=== PATIENT | female | born 1945 | race Caucasian/White ===

== ENCOUNTER → 2016-10-28 | Outpatient (CLI) | payer OTHER, MEDICARE | LOC: BMCIMAGING 11:02 | PROVIDERS: ATTEND Family Medicine | DX: R05 Cough (principal); R06.02 Shortness of breath ==

== ENCOUNTER → 2017-06-08 | Outpatient (CLI) | payer OTHER, MEDICARE | LOC: BMCIMAGING 07:53 | PROVIDERS: ATTEND Internal Medicine | DX: R10.2 Pelvic and perineal pain (principal); N28.1 Cyst of kidney, acquired ==

== ENCOUNTER 2018-10-31 09:25 | Inpatient (IN) | payer OTHER, MEDICARE ==
[2018-10-31] MEDS ORDERED: cefOXitin SODIUM 2 GM in NS 100 ML IV ONE (09:36)
[2018-10-31] MEDS ORDERED: LR 1,000 ML IV ONE (10:00)
[2018-10-31 10:21] LABS: PLATELET COUNT 238 10^3/uL (150-400)
--- NOTE | 2018-10-31 11:48 | PDHPUP ---
History & Physical Update H&P update statement: This history and physical update is based on an assessment of the patient which was completed after admission or registration (within 24 hours), but prior to the surgery/procedure. H&P update: H&P reviewed & patient examined, no change in patient's condition since H&P completed
[2018-10-31] MEDS ORDERED: ALPRAZolam 0.25 MG TAB PO ONE (12:30)
[2018-10-31] MEDS ORDERED: HEPARIN 1000 UNIT/1 ML MDV ONE (13:07)
[2018-10-31] MEDS ORDERED: BUPIVACAINE 0.5% 30 ML SDV ONE (13:07)
[2018-10-31] MEDS ORDERED: ceFAZolin 1 GM/5 ML SYR ONE (13:07)
--- NOTE | 2018-10-31 13:36 | PDANEPAE ---
ANE History of Present Illness sigmoid colectomy for colon Ca ANE Past Medical History - Cardiovascular History Hx Hypertension: No Hx Arrhythmias: No Hx Chest Pain: No Hx Coronary Artery / Peripheral Vascular Disease: No Hx CHF / Valvular Disease: No Hx Palpitations: No - Pulmonary History Hx COPD: No Hx Asthma/Reactive Airway Disease: No Hx Recent Upper Respiratory Infection: No Hx Oxygen in Use at Home: No Hx Sleep Apnea: No Sleep Apnea Screening Result - Last Documented: Negative Pulmonary History Comment: pneumonia one yr ago - Neurologic History Hx Cerebrovascular Accident: No Hx Seizures: No Hx Dementia: No - Endocrine History Hx Diabetes: No - Renal History Hx Renal Disorders: No Renal History Comment: kidney stone - Liver History Hx Hepatic Disorders: No - Neurological & Psychiatric Hx Hx Neurological and Psychiatric Disorders: Yes Neurological / Psychiatric History Comment: anxiety/depression - Cancer History Hx Cancer: Yes Cancer History Comment: colon ca - Congenital Disorder History Hx Congenital Disorders: No - GI History Hx Gastrointestinal Disorders: No - Other Health History Other Health History: neg - Chronic Pain History Chronic Pain: No - Surgical History Prior Surgeries: c section. colonoscopies x2 ANE Review of Systems Review of Systems: - Exercise capacity METS (RN): 4 METS ANE Patient History - Allergies Allergies/Adverse Reactions: No Known Allergies Allergy (Verified 10/29/18 10:58) - Home Medications Home medications: home medication list seen and reviewed Home Medications: FLUoxetine [Prozac 20 MG (*)] 80 mg PO DAILY 05/20/09 [Last Taken 1 Day Ago ~] ALPRAZolam [Xanax 0.25 MG (*)] 0.25 mg PO DAILY PRN 10/29/18 [Last Taken 08:30] Ibuprofen [Motrin (*)] 200 mg PO DAILY PRN 10/29/18 [Last Taken 3 Days Ago ~] - NPO status NPO Since - Liquids (Date): 10/31/18 NPO Since - Liquids (Time): 08:30 NPO Since - Solids (Date): 10/29/18 NPO Since - Solids (Time): 20:00 - Smoking Hx Smoking Status: Former smoker - Family Anes Hx Family Hx Anesthesia Complications: neg ANE Labs/Vital Signs - Labs Result Diagrams: 10/31/18 10:10 10/31/18 10:10 - Vital Signs Blood Pressure: 133/82 Heart Rate: 75 Respiratory Rate: 7 O2 Sat (%): 93 Height: 165.1 cm Weight: 95.254 kg ANE Physical Exam - Airway Neck exam: FROM Mallampati Score: Class 2 Mouth exam: dentures - Pulmonary Pulmonary: no respiratory distress - Cardiovascular Cardiovascular: regular rate and rhythym - ASA Status ASA Status: II ANE Anesthesia Plan Anesthesia Plan: general endotracheal anesthesia Regional Anesthesia: TAP block (at end if needed)
[2018-10-31] MEDS ORDERED: PROPOFOL/EMULSION 500 MG/50 ML BOTTLE IV ONE (13:42)
[2018-10-31] MEDS ORDERED: fentaNYL 100 MCG/2 ML INJ ONE ×2 (13:42→17:32)
[2018-10-31] MEDS ORDERED: DEXAMETHASONE 4 MG/ML VIAL ONE ×2 (13:44)
[2018-10-31] MEDS ORDERED: ROCURONIUM 50 MG/5 ML VIAL ONE (13:44)
[2018-10-31] MEDS ORDERED: LIDOCAINE 2% 100 MG/5 ML SYR ONE (13:44)
[2018-10-31] MEDS ORDERED: ONDANSETRON 4 MG/2 ML VIAL ONE (13:45)
[2018-10-31] MEDS ORDERED: LIDOCAINE HCL 160 MG/4 ML LTA KIT TP ONE (13:50)
[2018-10-31] MEDS ORDERED: ePHEDrine SULFATE 25 MG/5 ML SYR ONE (13:58)
[2018-10-31] MEDS ORDERED: fentaNYL 250 MCG/5 ML INJ ONE (14:26)
[2018-10-31] MEDS ORDERED: PHENYLEPHRINE HCL 100 MCG/ML SYR ONE ×2 (14:57→15:47)
[2018-10-31] MEDS ORDERED: NALOXONE HCL 0.4 MG/ML INJ IVP PRN ×2 (16:34→16:57)
[2018-10-31] MEDS ORDERED: ONDANSETRON 4 MG/2 ML VIAL IVP PRN ×2 (16:34→16:57)
[2018-10-31] MEDS ORDERED: ROPIVACAINE HCL 150 MG/30 ML INJ ONE ×2 (16:35)
--- NOTE | 2018-10-31 16:40 | POSTOPPROG ---
Post Op Note Date of Operation: 10/31/18 Surgeon: José Manuel Echeverria Commercial Front Load Driver: Lucretia Seay Anesthesiologist: Ernie Navas/ Zac Lackey Anesthesia: GET(General Endotracheal) Pre-op Diagnosis: sigmoid colon mass Post-op Diagnosis: same, but closer to descending colon Procedure: ex laparoscopy, laparotomy c L hemicolectomy Findings: tumor marked and palpated. many adhesions. no obvious mets. large omentum Inf/Abcess present in the surg proc area at time of surgery?: No EBL: 50-100 Bowel Protocol: Yes Clean Closure Performed: Yes Specimen(s): colon to pathology
[2018-10-31] MEDS ORDERED: oxyCODONE IR 5 MG TAB PO PRN (16:57)
[2018-10-31] MEDS ORDERED: ALBUTEROL 3 ML DEYVIAL IH PRN (16:57)
[2018-10-31] MEDS ORDERED: HYDROmorphONE/DILAUDID 1 MG/ML INJ IVP PRN (16:57)
[2018-10-31] MEDS ORDERED: fentaNYL 100 MCG/2 ML INJ IVP PRN (16:57)
--- NOTE | 2018-10-31 16:57 | POSTANESTH ---
Post Anesthetic Evaluation Cardiovascular Status: Normal, Stable Respiratory Status: Normal, Stable Level of Consciousness/Mental Status: Can Participate in Eval, Alert and Oriented Pain Control: Adequate, Prn Tx Ordered Nausea/Vomiting Control: Adequate, Prn Tx Ordered
--- NOTE | 2018-10-31 17:54 | PDMN ---
Medical Necessity Medical necessity: [facility] IP only surgery, cpt 89670 Partial Colectomy
[2018-10-31] MEDS: NS 1,000 ML IV SCH (18:33)
[2018-10-31] MEDS: HYDROmorphONE/DILAUDID 6 MG/30 ML PCA IV PRN (20:28)
[2018-10-31] MEDS: DOCUSATE SODIUM 100 MG CAP PO SCH (23:35)
[2018-11-01] MEDS: NS 1,000 ML IV SCH ×3 (02:38→18:41)
[2018-11-01] MEDS ORDERED: ENOXAPARIN 40 MG/0.4 ML SYR SC SCH (09:00)
[2018-11-01] MEDS: DOCUSATE SODIUM 100 MG CAP PO SCH ×2 (09:31→22:04)
[2018-11-01] MEDS: FLUoxetine 20 MG CAP PO SCH (09:31)
--- NOTE | 2018-11-01 09:37 | SOAPPROG ---
SOAP Progress Note Assessment/Plan: Assessment/plan: 73 y/o F s/p lap conversion to open L hemicolectomy for CA POD #1 Path pending. Cr and K elevated this am. Will recheck later today. Continue iv fluids. Camejo. Remove per protocol. Continue manager digital ad operations for pain. Continue NPO with small sips and ice chips until pt passes flatus. Ambulate Dispo: pending clinical course and return of bowel function. S: Doing well overall. Denies passing gas yet. Pain controlled with manager digital ad operations. O: Alert Afebrile, VSS RRR No increased WOB Abdomen: soft, nontender, nondistended, incision site well dressed. Absent bowel sounds. 11/01/18 09:32 Objective: Vital Signs Temp Pulse Resp BP Pulse Ox 37.2 C 89 17 112/71 91 L 11/01/18 08:01 11/01/18 08:01 11/01/18 08:01 11/01/18 08:01 11/01/18 08:01 Laboratory Results 11/01/18 05:02 11/01/18 05:02 10/31/18 11/01/18 11/02/18 05:59 05:59 05:59 Intake Total 4645 Output Total 900 Balance 3745 ICD10 Worksheet Patient Problems: Problems Problem Status Onset Colon cancer Acute - ICD10 Problem Qualifiers (1) Colon cancer
[2018-11-01] MEDS: ALPRAZolam 0.25 MG TAB PO PRN ×2 (09:43→22:35)
--- NOTE | 2018-11-01 09:45 | ASMTCMCOM ---
CM Note CM Note Notes: Patient admitted for exploratory laparoscopy, laparotomy w L hemicolectomy. She is recovering well. She lives alone and is normally independent. Son from [facility] coming in Monday, 11/03 to help. She also has a friend who can assist if she is discharged before he arrives. I do not anticipate a need for home health but Case Management available if needs change. Current CM Discharge plan: home independent Date Signed: 11/01/2018 09:44 AM Electronically Signed By:Jayde Wilkerson RN
[2018-11-01] MEDS: OXYCODONE/APAP 5/325 TAB PO PRN (12:31)
[2018-11-01] MEDS: HYDROmorphONE/DILAUDID 6 MG/30 ML PCA IV PRN (20:15)
[2018-11-01] MEDS: HEPARIN 5,000 UNIT/0.5 ML INJ SC SCH (22:03)
--- NOTE | 2018-11-01 23:12 | GOP ---
[f rep st] OPERATIVE REPORT DATE OF OPERATION: 10/31/2018 SURGEON: José Manuel Echeverria MD DIRECTOR ADVANCED: ROSEMARY Medeiros. ANESTHESIOLOGIST: Dr. Lowe. PREOPERATIVE DIAGNOSIS: Sigmoid colon cancer. POSTOPERATIVE DIAGNOSIS: Descending colon cancer. PROCEDURE PERFORMED: Laparoscopic left hemicolectomy with conversion to an open laparotomy. FINDINGS: Patient was found to have a nearly-obstructing colon cancer near the splenic flexure of th e descending colon on the left. Had a redundant sigmoid colon. Had markedly thickened enlarged omen luigi which was largely obscuring the splenic flexure and the colon cancer. DESCRIPTION OF PROCEDURE: The patient was taken to the operating room where she received a satisfact ory general endotracheal anesthesia by Dr. Lowe. She was placed in a supine position in low stir rups, prepped and draped in usual sterile fashion. A supraumbilical incision was made. A Veress nee dle inserted. Pneumoperitoneum was established. Trocar was introduced. Laparoscope introduced. Go od visualization was obtained. Three other trocars were placed in the lower abdomen under direct vis ion. The sigmoid colon was mobilized by dividing the lateral peritoneal reflection and taking down a significant number of adhesions with the Harmonic Scalpel. However, the tumor was not seen in the s igmoid colon as advertised and was located further up underneath the thickened omentum in the descend ing colon. The Harmonic Scalpel was used to separate the omentum from the left colon, and the perito jaren reflection was divided with the Harmonic Scalpel up around the splenic flexure. However, it was still quite difficult to define the anatomy. After a tedious amount of dissection, it was elected t o make a midline incision for better mobilization of the colon. This was carried down through the neeta alba. The abdomen was entered. The Josué wound retractor was placed. The splenic flexure was further mobilized by retracting the descending and sigmoid colon medially and dividing the omentum of f the transverse colon with the Harmonic Scalpel. The left colon mesentery was then divided with the Harmonic Scalpel adjacent to the aorta with care to avoid injury to the ureter or the small intestin e. This was done with the Harmonic Scalpel. The distal colon was divided with a EMPERATRIZ stapler as was the left transverse colon. The specimen was removed and sent to Pathology, and confirmed to contain the cancerous mass. End-to-side anastomosis was then made of the transverse colon to the proximal si gmoid. This was done in a 2-layer fashion with 3-0 silks for the anterior and posterior layers and a running inner layer of 3-0 Vicryl creating a good 2-fingerbreadth anastomosis. The suture line was covered with some omental tissue with separate 3-0 silk sutures. The wound was irrigated. Hemostasi s was assured. A clean closure setup was used along with new gloves and gowns, and the wound was the n closed using a running #1 PDS suture for the linea alba, a 3-0 Vicryl for the subcu, 4-0 Monocryl s ubcuticular stitch for the skin. All layers were infiltrated with 0.5% Marcaine. Trocar sites were also closed with 4-0 Monocryl subcuticular stitch for the skin. Wounds were infiltrated with 0.5% Ma rcaine. She tolerated the procedure well, was taken to the recovery room in good condition. There w ere no complications. /[id number]/MODL
[2018-11-02] MEDS: NS 1,000 ML IV SCH (03:35)
[2018-11-02] MEDS: HEPARIN 5,000 UNIT/0.5 ML INJ SC SCH ×3 (06:09→21:46)
[2018-11-02] MEDS: OXYCODONE/APAP 5/325 TAB PO PRN (07:50)
[2018-11-02] MEDS: DOCUSATE SODIUM 100 MG CAP PO SCH ×2 (09:17→20:58)
[2018-11-02] MEDS: FLUoxetine 20 MG CAP PO SCH (09:17)
[2018-11-02] MEDS: HYDROmorphONE/DILAUDID 2 MG TAB PO PRN ×3 (12:05→20:58)
--- NOTE | 2018-11-02 14:19 | SOAPPROG ---
SOAP Progress Note Assessment/Plan: Assessment/plan: 73 y/o F s/p lap conversion to open L hemicolectomy for CA POD #2 Path pending. Cr and K elevated yesterday. Improved today. Camejo removed yesterday. Uop adequate Postop pain. D/c manager technical training today and transition to oral pain meds Advance to clear liquid diet. Continue to ambulate Dispo: likely home over the weekend. S: Pain controlled. Denies passing gas. O: Alert Afebrile, VSS RRR No increased WOB Abdomen: soft, nontender, nondistended. Incision cdi. Normoactive bowel sounds. 11/02/18 14:17 Objective: Vital Signs Temp Pulse Resp BP Pulse Ox 36.6 C 77 16 115/67 88 L 11/02/18 11:32 11/02/18 11:32 11/02/18 11:32 11/02/18 11:32 11/02/18 11:32 Laboratory Results 11/01/18 05:02 11/02/18 08:00 11/01/18 11/02/18 11/03/18 05:59 05:59 05:59 Intake Total 4645 2000 Output Total 900 1350 400 Balance 3745 -1350 1600 ICD10 Worksheet Patient Problems: Problems Problem Status Onset Colon cancer Acute - ICD10 Problem Qualifiers (1) Colon cancer
[2018-11-02] MEDS: HYDROmorphONE/DILAUDID 1 MG/ML INJ IVP PRN ×2 (18:01→22:57)
[2018-11-03] MEDS: HYDROmorphONE/DILAUDID 2 MG TAB PO PRN (01:08)
[2018-11-03] MEDS: HEPARIN 5,000 UNIT/0.5 ML INJ SC SCH ×4 (06:33→22:33)
[2018-11-03] MEDS: ALPRAZolam 0.25 MG TAB PO PRN (06:45)
[2018-11-03] MEDS ORDERED: ALPRAZolam 0.5 MG TAB PO PRN (07:11)
[2018-11-03] MEDS: DOCUSATE SODIUM 100 MG CAP PO SCH ×2 (07:57→22:28)
[2018-11-03] MEDS: FLUoxetine 20 MG CAP PO SCH (07:58)
[2018-11-03] MEDS: traMADol 50 MG TAB PO PRN ×2 (07:58→15:47)
[2018-11-03] MEDS: OXYCODONE/APAP 5/325 TAB PO PRN ×3 (10:01→22:27)
[2018-11-03] MEDS ORDERED: BISACODYL 10 MG SUPP PR ONE (13:00)
--- NOTE | 2018-11-03 13:09 | SOAPPROG ---
SOAP Progress Note Assessment/Plan: Assessment: DOING WELL/PATH PENDING/MINIMAL FLATUS/AFEBRILE ABDOMEN SOFT/WOUND OKAY/POSITIVE BOWEL SOUNDS/TOLERATING CLEARS Plan: HOPEFULLY ADVANCE DIET SOON 11/03/18 13:08 Objective: Vital Signs Temp Pulse Resp BP Pulse Ox 36.9 C 83 16 146/77 H 90 L 11/03/18 12:00 11/03/18 12:00 11/03/18 12:00 11/03/18 12:00 11/03/18 12:00 Laboratory Results 11/01/18 05:02 11/02/18 08:00 11/02/18 11/03/18 11/04/18 05:59 05:59 05:59 Intake Total 3480 Output Total 1350 1999 Balance -1350 1480 ICD10 Worksheet Patient Problems: Problems Problem Status Onset Colon cancer Acute
[2018-11-04] MEDS: HEPARIN 5,000 UNIT/0.5 ML INJ SC SCH ×3 (05:59→19:50)
[2018-11-04] MEDS: HYDROmorphONE/DILAUDID 2 MG TAB PO PRN (08:03)
[2018-11-04] MEDS: FLUoxetine 20 MG CAP PO SCH (08:04)
[2018-11-04] MEDS: DOCUSATE SODIUM 100 MG CAP PO SCH (08:05)
[2018-11-04] MEDS ORDERED: ONDANSETRON DISINTEGRATING 4 MG TAB PO PRN (08:24)
[2018-11-04] MEDS: OXYCODONE/APAP 5/325 TAB PO PRN (17:03)
[2018-11-05] MEDS: DOCUSATE SODIUM 100 MG CAP PO SCH ×2 (05:00→08:02)
[2018-11-05] MEDS: HEPARIN 5,000 UNIT/0.5 ML INJ SC SCH (06:45)
[2018-11-05 07:46] VITALS: BP 112/67
--- NOTE | 2018-11-05 07:51 | SOAPPROG ---
SOAP Progress Note Assessment/Plan: Assessment/Plan: 73 Y F s/p laparotomy c L hemicolectomy. D/c to home. Limitations discussed. S: passing gas, pain pills working, had BM O: alert, nad ctab rrr abd soft, inc cdi, +BS 11/05/18 07:50 Objective: Vital Signs Temp Pulse Resp BP Pulse Ox 36.4 C 75 18 112/67 90 L 11/05/18 07:44 11/05/18 07:44 11/05/18 07:44 11/05/18 07:44 11/05/18 07:44 Laboratory Results 11/01/18 05:02 11/02/18 08:00 11/04/18 11/05/18 11/06/18 05:59 05:59 05:59 Intake Total 2400 Output Total 1800 800 Balance 600 -800 ICD10 Worksheet Patient Problems: Problems Problem Status Onset Colon cancer Acute
[2018-11-05] MEDS: FLUoxetine 20 MG CAP PO SCH (08:01)
[2018-11-05] MEDS: HYDROmorphONE/DILAUDID 2 MG TAB PO PRN (08:01)
--- NOTE | 2018-11-05 08:22 | ASMTCMCOM ---
CM Note CM Note Notes: Met with Pt who is recovering from a left hemicolectomy for a descending colon cancer in which pathology report is pending. Pt is improving. Kathy will discharge home this morning with her son. CM available for needs prior to discharge. PLAN: Home independently with Son Date Signed: 11/05/2018 08:21 AM Electronically Signed By:Rosalie Gamboa
--- NOTE | 2018-11-05 08:23 | ASMTLACE ---
[facility] Length of stay for Answers: 4-6 days current admission Acuity / Level of Answers: Yes Care: Did the patient have an inpatient admission? Comorbidities - select Answers: Any tumor (including all that apply lymphoma or leukemia) # of Emergency department Answers: 0 visits in the last 6 months Social determinants Answers: Mental health diagnosis (anxiety, depression, pers onality disorders, etc.) Score: 12 Date Signed: 11/05/2018 08:23 AM Electronically Signed By:Rosalie Gamboa
--- NOTE | 2018-11-19 11:40 | GDS ---
[f rep st] DISCHARGE SUMMARY DISCHARGE DIAGNOSIS: Descending colon cancer. PROCEDURE PERFORMED: Laparoscopic left hemicolectomy with conversion to open laparotomy. INTRAOPERATIVE FINDINGS: The patient was found to have a nearly obstructing colon cancer near the sp lenic flexure of the descending colon. She had a redundant sigmoid colon. She also had markedly thi ckened and large omentum, which was largely obscuring the splenic flexure and the colon cancer. SPECIAL TESTS: None. CONSULTATIONS: None. HOSPITAL COURSE: Kathy is a 73-year-old female who was found to have a left-sided colon cancer and u nderwent hemicolectomy as described above. The procedure was uncomplicated and she tolerated it well . The patient's postoperative course was relatively uneventful. Her Camejo catheter was removed on p ostoperative day 1 and she was able to void spontaneously. Her pain was initially controlled with a PRIVATE WATCHMAN and then she was transitioned to oral pain meds as her diet was advanced. She did have some elev ation of creatinine and some hyperkalemia, which was observed with repeat labs and had improved. Jennifer moyer was pending at time of discharge. DISCHARGE INSTRUCTIONS: The patient was discharged to home in stable condition with plans for outpat ient followup. Limitations were discussed. She understands she will eventually need to see her onco logist as well. /[id number]/MODL
== END 2018-11-05 10:00 | disposition home or self-care (01) | DRG 330 ==
LOC: F1N 09:25
PROVIDERS: ADMIT Surgery; ATTEND Surgery
DX: C18.6 Malignant neoplasm of descending colon (principal); E87.5 Hyperkalemia; K56.50 Intestinal adhesions [bands], unspecified as to partial versus complete obstruction; Z53.31 Laparoscopic surgical procedure converted to open procedure; Z87.891 Personal history of nicotine dependence; F32.9 Major depressive disorder, single episode, unspecified; Z87.442 Personal history of urinary calculi
CPT/HCPCS: J0694; J1100; J1170; J1644; J2001; J2370; J2405; J2704; J2795; J3010

== ENCOUNTER → 2018-12-20 | Outpatient (CLI) | payer OTHER, MEDICARE | LOC: FIMAGING 11:21 ==

== ENCOUNTER → 2018-12-27 | Outpatient (CLI) | payer OTHER, MEDICARE | LOC: FIMAGING 12:38 ==